=== PATIENT | female | born 1955 | race Caucasian/White ===

== ENCOUNTER 2023-05-04 13:37 | Outpatient (CLI) | payer MEDICARE | END 2023-05-04 13:38 | disposition home or self-care (01) | LOC: CSHMAMMO 13:37 | PROVIDERS: ATTEND Family Medicine | DX: Z13.820 Encounter for screening for osteoporosis (principal); M85.851 Other specified disorders of bone density and structure, right thigh; M85.852 Other specified disorders of bone density and structure, left thigh | CPT/HCPCS: 77080 ==

== ENCOUNTER 2025-01-16 09:35 | Outpatient (CLI) | payer MEDICARE | END 2025-01-16 09:36 | disposition home or self-care (01) | LOC: CSHMAMMO 09:35 | PROVIDERS: ATTEND Family Medicine | DX: N64.89 Other specified disorders of breast (principal) | CPT/HCPCS: 77065; G0279 ==